=== PATIENT | male | born 1995 | race African-American/Black ===

== ENCOUNTER 2019-10-02 22:38 | Emergency (ER) | payer BC ==
[~2019-10-02] VITALS: Ht 190.5 cm; Wt 79.4 kg
[2019-10-02 22:44] VITALS: BP 149/83
[2019-10-02] MEDS ORDERED: HYDROcodone/APAP 5/325 MG 1 TAB TAB PO ONE (23:55)
[2019-10-03 00:38] VITALS: BP 135/79
== END 2019-10-03 00:38 | disposition home or self-care (01) ==
LOC: MED 22:38
DX: K08.89 Other specified disorders of teeth and supporting structures (principal)
CPT/HCPCS: 99283